=== PATIENT | female | born 1975 | race African-American/Black ===

== ENCOUNTER 2025-03-11 14:09 | Outpatient (CLI) | payer OTHER | END 2025-03-11 14:10 | disposition home or self-care (01) | LOC: CSHMAMMO 14:09 | PROVIDERS: ATTEND Internal Medicine Hematology & Oncology | DX: C34.11 Malignant neoplasm of upper lobe, right bronchus or lung (principal); N63.14 Unspecified lump in the right breast, lower inner quadrant; N60.01 Solitary cyst of right breast | CPT/HCPCS: 77066; G0279 ==